=== PATIENT | male | born 1960 | race Two or more races ===

== ENCOUNTER 2024-03-04 18:42 | Outpatient (CLI) | payer OTHER | END 2024-03-04 23:00 | disposition home or self-care (01) | LOC: LAB 18:42 | PROVIDERS: ATTEND Urology | DX: R97.20 Elevated prostate specific antigen [PSA] (principal) ==

== ENCOUNTER 2024-04-17 07:00 | Outpatient (CLI) | payer OTHER | END 2024-04-17 07:12 | disposition home or self-care (01) | LOC: SONOGRAMA 07:00 | PROVIDERS: ATTEND Urology | DX: N40.1 Benign prostatic hyperplasia with lower urinary tract symptoms (principal); R97.20 Elevated prostate specific antigen [PSA] ==